=== PATIENT | female | born 1960 | race American Indian/Alaskan Native ===

== ENCOUNTER 2016-12-23 16:31 | Emergency (ER) | payer MEDICARE ==
[2016-12-23 16:44] VITALS: BP 135/88
[2016-12-23 17:24] LABS: Basophils % (Auto) 0.5 % (0.0-1.8); Eosinophils % (Auto) 1.3 % (0.0-4.3); Hematocrit 34.5 % (30.3-42.9); Hemoglobin 11.4 gm/dl (10.1-14.3); Mean Corpuscular HGB Conc 33 % (30-34); Mean Corpuscular Hemoglobin 29 pg (28-32); Mean Corpuscular Volume 88 fl (79-97); Platelet Count 276 K/mm3 (140-440); Red Blood Count 3.91 M/mm3 (3.65-5.03); Red Cell Distribution Width 13.5 % (13.2-15.2)
[2016-12-23 17:28] LABS: Urine Drugs of Abuse Note Disclamer
[2016-12-23 17:30] LABS: Anion Gap 18 mmol/L; BUN/Creatinine Ratio 17.14; Blood Urea Nitrogen 12 mg/dL (7-17); Calcium 9.6 mg/dL (8.4-10.2); Carbon Dioxide 29 mmol/L (22-30); Chloride 100.8 mmol/L (98-107); Glucose 112 mg/dL (65-100); Potassium 3.3 mmol/L (3.6-5.0); Sodium 144 mmol/L (137-145)
[2016-12-23 17:42] LABS: Bilirubin,Urine SM (Negative); Blood,Urine NEG (Negative); Ketones,Urine NEG (Negative); Leukocyte Esterase,Urine NEG (Negative); Mucus,Urine FEW /HPF; Nitrite,Urine NEG (Negative); Protein,Urine <15 mg/dL mg/dL (Negative)
--- NOTE | 2016-12-23 21:29 | Emergency Department Report ---
ED General Adult HPI - General Chief complaint: Psych Stated complaint: SLEEPY Time Seen by Provider: 12/23/16 21:23 Source: patient, RN notes reviewed Mode of arrival: Ambulatory Limitations: No Limitations - History of Present Illness Initial comments: This is a 56-year-old female who was previously unknown to this provider. She presents to the ER with a complaint of feeling sleepy. This is been going on for months. It does not have exacerbating or relieving factors. She is not homicidal or suicidal. She is not having hallucinations. She did not have access to guns or firearms. -: Gradual, month(s) Consistency: constant Improves with: none Worsens with: none Associated Symptoms: denies: chest pain, cough, diaphoresis, fever/chills, headaches, loss of appetite, malaise, nausea/vomiting, rash, shortness of breath , syncope, weakness - Related Data Home Medications Medication Instructions Recorded Confirmed Last Taken No Known Home Medications [No 12/23/16 12/23/16 Unknown Reported Home Medications] Allergies Allergy/AdvReac Type Severity Reaction Status Date / Time No Known Allergies Allergy Verified 12/23/16 16:37 ED Review of Systems ROS: Stated complaint: SLEEPY Other details as noted in HPI Constitutional: denies: fever Eyes: denies: eye discharge ENT: denies: epistaxis Respiratory: denies: cough Cardiovascular: denies: chest pain Gastrointestinal: denies: abdominal pain Genitourinary: denies: dysuria Musculoskeletal: denies: back pain Skin: denies: lesions Neurological: confusion Psychiatric: denies: homicidal thoughts, suicidal thoughts ED Past Medical Hx - Past Medical History Hx Hypertension: Yes Hx Diabetes: Yes Hx Arthritis: Yes Hx Asthma: Yes - Surgical History Past Surgical History?: Yes Additional Surgical History: gallbladder - Social History Smoking Status: Never Smoker Substance Use Type: None - Medications Home Medications: Home Medications Medication Instructions Recorded Confirmed Last Taken Type No Known Home Medications [No 12/23/16 12/23/16 Unknown History Reported Home Medications] ED Physical Exam - General Limitations: No Limitations General appearance: obese - Head Head exam: Present: atraumatic, normocephalic - Eye Eye exam: Present: normal appearance, PERRL, EOMI, other (visual acuity intact to finger counting, color perception, reading at a close distance). Absent: nystagmus - ENT ENT exam: Present: normal exam, normal orophraynx, mucous membranes moist, normal external ear exam - Neck Neck exam: Present: normal inspection, full ROM. Absent: tenderness, meningismus - Respiratory Respiratory exam: Present: normal lung sounds bilaterally. Absent: respiratory distress, wheezes, rales, rhonchi, stridor, chest wall tenderness, accessory muscle use, decreased breath sounds, prolonged expiratory - Cardiovascular Cardiovascular Exam: Present: regular rate, normal rhythm, normal heart sounds. Absent: bradycardia, tachycardia, irregular rhythm, systolic murmur, diastolic murmur, rubs, gallop - GI/Abdominal GI/Abdominal exam: Present: soft, normal bowel sounds. Absent: distended, tenderness, guarding, rebound, rigid, pulsatile mass - Extremities Exam Extremities exam: Present: normal inspection, full ROM. Absent: tenderness, calf tenderness - Back Exam Back exam: Present: normal inspection, full ROM. Absent: tenderness, CVA tenderness (R), paraspinal tenderness, vertebral tenderness - Neurological Exam Neurological exam: Present: alert, oriented X3, normal gait, other (Extraocular movements intact. Tongue midline. No facial droop. Facial sensation intact to light touch in the V1, V2, V3 distribution bilaterally. 5 and 5 strength in 4 extremities.. Sensation is intact to light touch in 4 extremities.). Absent : motor sensory deficit - Psychiatric Psychiatric exam: Present: normal affect, normal mood. Absent: homicidal ideation, suicidal ideation - Skin Skin exam: Present: warm, dry, intact, normal color. Absent: rash ED Course Vital Signs 12/23/16 16:37 Temperature 98.7 F Pulse Rate 68 Respiratory 16 Rate Blood Pressure 135/88 O2 Sat by Pulse 95 Oximetry ED Medical Decision Making - Lab Data Result diagrams: 12/23/16 16:57 12/23/16 16:57 Vital Signs 12/23/16 16:37 Temperature 98.7 F Pulse Rate 68 Respiratory 16 Rate Blood Pressure 135/88 O2 Sat by Pulse 95 Oximetry Lab Results 12/23/16 12/23/16 12/23/16 Range/Units 16:57 16:57 16:57 WBC 6.0 (4.5-11.0) K/mm3 RBC 3.91 (3.65-5.03) M/mm3 Hgb 11.4 (10.1-14.3) gm/dl Hct 34.5 (30.3-42.9) % MCV 88 (79-97) fl MCH 29 (28-32) pg MCHC 33 (30-34) % RDW 13.5 (13.2-15.2) % Plt Count 276 (140-440) K/mm3 Lymph % (Auto) 42.5 H (13.4-35.0) % [place] % (Auto) 11.2 H (0.0-7.3) % Eos % (Auto) 1.3 (0.0-4.3) % Baso % (Auto) 0.5 (0.0-1.8) % Lymph # 2.5 (1.2-5.4) K/mm3 [place] # 0.7 (0.0-0.8) K/mm3 Eos # 0.1 (0.0-0.4) K/mm3 Baso # 0.0 (0.0-0.1) K/mm3 Seg Neutrophils % 44.5 (40.0-70.0) % Seg Neutrophils # 2.7 (1.8-7.7) K/mm3 Sodium 144 (137-145) mmol/L Potassium 3.3 L (3.6-5.0) mmol/L Chloride 100.8 (98-107) mmol/L Carbon Dioxide 29 (22-30) mmol/L Anion Gap 18 mmol/L BUN 12 (7-17) mg/dL Creatinine 0.7 (0.7-1.2) mg/dL Estimated GFR > 60 ml/min BUN/Creatinine Ratio 17.14 % Glucose 112 H (65-100) mg/dL Calcium 9.6 (8.4-10.2) mg/dL Urine Color (Yellow) Urine Turbidity (Clear) Urine pH (5.0-7.0) Ur Specific [place] (1.003-1.030) Urine Protein (Negative) mg/dL Urine Glucose (UA) (Negative) mg/dL Urine Ketones (Negative) mg/dL Urine Blood (Negative) Urine Nitrite (Negative) Urine Bilirubin (Negative) Urine Ictotest (Negative) Urine Urobilinogen (<2.0) mg/dL Ur Leukocyte Esterase (Negative) Urine WBC (Auto) (0.0-6.0) /HPF Urine RBC (Auto) (0.0-6.0) /HPF U Epithel Cells (Auto) (0-13.0) /HPF Urine Mucus /HPF Urine Opiates Screen Urine Methadone Screen Ur Barbiturates Screen Ur Phencyclidine Scrn Ur Amphetamines Screen U Benzodiazepines Scrn Urine Cocaine Screen U Marijuana (THC) Screen Drugs of Abuse Note Plasma/Serum Alcohol < 0.01 (0-0.07) gm% 12/23/16 12/23/16 Range/Units Unknown Unknown WBC (4.5-11.0) K/mm3 RBC (3.65-5.03) M/mm3 Hgb (10.1-14.3) gm/dl Hct (30.3-42.9) % MCV (79-97) fl MCH (28-32) pg MCHC (30-34) % RDW (13.2-15.2) % Plt Count (140-440) K/mm3 Lymph % (Auto) (13.4-35.0) % [place] % (Auto) (0.0-7.3) % Eos % (Auto) (0.0-4.3) % Baso % (Auto) (0.0-1.8) % Lymph # (1.2-5.4) K/mm3 [place] # (0.0-0.8) K/mm3 Eos # (0.0-0.4) K/mm3 Baso # (0.0-0.1) K/mm3 Seg Neutrophils % (40.0-70.0) % Seg Neutrophils # (1.8-7.7) K/mm3 Sodium (137-145) mmol/L Potassium (3.6-5.0) mmol/L Chloride (98-107) mmol/L Carbon Dioxide (22-30) mmol/L Anion Gap mmol/L BUN (7-17) mg/dL Creatinine (0.7-1.2) mg/dL Estimated GFR ml/min BUN/Creatinine Ratio % Glucose (65-100) mg/dL Calcium (8.4-10.2) mg/dL Urine Color Yellow (Yellow) Urine Turbidity Clear (Clear) Urine pH 5.0 (5.0-7.0) Ur Specific [place] 1.024 (1.003-1.030) Urine Protein <15 mg/dl (Negative) mg/dL Urine Glucose (UA) Neg (Negative) mg/dL Urine Ketones Neg (Negative) mg/dL Urine Blood Neg (Negative) Urine Nitrite Neg (Negative) Urine Bilirubin Sm (Negative) Urine Ictotest Positive (Negative) Urine Urobilinogen 4.0 (<2.0) mg/dL Ur Leukocyte Esterase Neg (Negative) Urine WBC (Auto) 1.0 (0.0-6.0) /HPF Urine RBC (Auto) 1.0 (0.0-6.0) /HPF U Epithel Cells (Auto) 1.0 (0-13.0) /HPF Urine Mucus Few /HPF Urine Opiates Screen Presumptive negative Urine Methadone Screen Presumptive negative Ur Barbiturates Screen Presumptive negative Ur Phencyclidine Scrn Presumptive negative Ur Amphetamines Screen Presumptive negative U Benzodiazepines Scrn Presumptive negative Urine Cocaine Screen Presumptive negative U Marijuana (THC) Screen Presumptive negative Drugs of Abuse Note Disclamer Plasma/Serum Alcohol (0-0.07) gm% - Medical Decision Making Differential diagnosis: Obstructive sleep apnea, poor sleep hygiene, general medical evaluation Assessment and plan: A 56-year-old femalewith a complaint of feeling forgetful for months. She is afebrile, with reassuring vital signs, has a GCS of 15, with an NIH score of 0, she is clinically sober, does not require 1013, she is not a homicidal nor suicidal. There does not appear to be any emergent condition at this time, she does not require 1013, down to be incidentally hypokalemic, this is repleted. The patient is to follow-up with an outpatient primary care doctor. There does not appear to be an emergent condition at this time. Patient alert and oriented 3, immediate and short-term recall intact Critical care attestation.: If time is entered above; I have spent that time in minutes in the direct care of this critically ill patient, excluding procedure time. ED Disposition Clinical Impression: General medical exam Disposition: DC-01 TO HOME OR SELFCARE Is pt being admited?: No Does the pt Need Aspirin: No Condition: Good Instructions: Snoring (ED) Additional Instructions: Follow-up with the primary care doctor within the next month. Return to the ER right away with fevers, chills, lethargy, irritability, chest pain and abdominal pain, shortness of breath, homicidality, suicidality, inability to tolerate liquid feeds. Referrals: PRIMARY CARE, [Primary Care Provider] - 3-5 Days LORD,RAMILA L, MD [Staff Physician] - 3-5 Days LOGAN LORD MD [Referring] - 3-5 Days [facility] [Provider Group] - 3-5 Days
[2016-12-23] MEDS ORDERED: K-DUR PO ONE (21:54)
== END 2016-12-23 23:08 | disposition home or self-care (01) ==
LOC: ED 16:31
DX: G47.8 Other sleep disorders (principal); I10 Essential (primary) hypertension; E11.9 Type 2 diabetes mellitus without complications; M19.90 Unspecified osteoarthritis, unspecified site; J45.909 Unspecified asthma, uncomplicated
CPT/HCPCS: 36415; 80048; 80307; 81001; 85025; 99283; G0480; 80320

== ENCOUNTER 2019-09-28 23:43 | Emergency (ER) | payer MEDICAID, MEDICARE ==
[2019-09-28] MEDS ORDERED: ASPIRIN 325 MG TAB PO ONE (23:54)
[2019-09-29 00:47] LABS: Bacteria,Urine 1+ /HPF (Negative); Bilirubin,Urine NEG (Negative); Blood,Urine NEG (Negative); Color,Urine Yellow (Yellow); Mucus,Urine FEW /HPF
[2019-09-29 00:48] LABS: Basophils # (Auto) 0.1 K/mm3 (0.0-0.1); Basophils % (Auto) 1.1 % (0.0-1.8); Eosinophils # (Auto) 0.1 K/mm3 (0.0-0.4); Eosinophils % (Auto) 0.5 % (0.0-4.3); Lymphocytes # (Auto) 2.5 K/mm3 (1.2-5.4); Lymphocytes % (Auto) 23.1 % (13.4-35.0); Mean Corpuscular HGB Conc 37 % (30-34); Mean Corpuscular Volume 89 fl (79-97); Monocytes # (Auto) 0.8 K/mm3 (0.0-0.8); Monocytes % (Auto) 7.7 % (0.0-7.3); Platelet Count 360 K/mm3 (140-440); Red Blood Count 4.09 M/mm3 (3.65-5.03); Red Cell Distribution Width 13.5 % (13.2-15.2)
[2019-09-29 00:54] LABS: Hematocrit 36.5 % (30.3-42.9); Hemoglobin 13.4 gm/dl (10.1-14.3)
--- NOTE | 2019-09-29 01:29 | XRay Report ---
CHEST 1 VIEW INDICATION: Chest Pain. COMPARISON: None. FINDINGS: Support devices: None. Heart: Normal. Lungs/Pleura: No acute pulmonary or pleural findings. IMPRESSION: 1. No acute findings. At the time of this dictation, the image is under an EKG heading. The technologist will have this res olved in the morning. Signer Name: Froilan Velez MD Signed: 09/29/2019 1:25 AM Workstation Name: [id number]
[2019-09-29 01:42] LABS: Alanine Aminotransferase 12 units/L (7-56); Albumin 4.6 g/dL (3.9-5); BUN/Creatinine Ratio 13; Blood Urea Nitrogen 8 mg/dL (7-17); Calcium 10.8 mg/dL (8.4-10.2); Hemolysis Index 3
[2019-09-29] MEDS ORDERED: ONDANSETRON 4 MG/2 ML INJ IV ONE (02:15)
[2019-09-29] MEDS ORDERED: SODIUM CHLORIDE 0.9% 500 ML 500 ML IV ONE (02:16)
[2019-09-29] MEDS ORDERED: HYDROmorphone 1 MG/1 ML INJ IV ONE (02:16)
--- NOTE | 2019-09-29 02:16 | Emergency Department Report ---
ED General Adult HPI - General Chief complaint: Chest Pain Stated complaint: CHEST PAIN PUI?: No Time Seen by Provider: 09/29/19 02:06 Source: patient, EMS ( EMS documentation not available at time of chart dictation ), RN notes reviewed, old records reviewed Mode of arrival: Ambulatory Limitations: No Limitations - History of Present Illness Initial comments: This is a 59-year-old female who typically follows with [facility]. Her past medical history includes arthritis, obesity, distant history of cholecystectomy, diabetes, hypertension, fibromyalgia. The patient presents to the ER with a complaint of diffuse abdominal pain. Her abdominal pain is "all over." It got worse over the past 24 hours. She is scheduled to see a GI physician in the next month Triage documentation is reviewed and appreciated, however, this patient specifically denies chest pain, shortness of breath. She denies DVT and pulmonary embolism risk factors. There is no complaint of headache, neck pain, chest pain or acute upper back pain. No irritative or obstructive urinary symptoms. Abdominal pain is sharp, crampy and achy, increases with palpation, range of motion, position and decreases with rest. No extremity complaints are endorsed. -: Gradual, hour(s), days(s) Location: abdomen Radiation: non-radiation Quality: aching Consistency: constant Improves with: rest Worsens with: movement - Related Data Previous Rx's Medication Instructions Recorded Last Taken Type Acetaminophen [Non-Aspirin Extra 500 mg PO Q6HR PRN #30 tablet 09/29/19 Unknown Rx Strength] Famotidine [Pepcid] 20 mg PO BID #60 tablet 09/29/19 Unknown Rx Magnesium Oxide [Mag-Ox] 400 mg PO QDAY #14 tablet 09/29/19 Unknown Rx Metoclopramide [Reglan] 10 mg PO QID PRN #30 tablet 09/29/19 Unknown Rx Allergies Allergy/AdvReac Type Severity Reaction Status Date / Time No Known Allergies Allergy Verified 12/23/16 16:37 ED Review of Systems ROS: Stated complaint: CHEST PAIN Other details as noted in HPI Constitutional: denies: fever Eyes: denies: eye discharge ENT: denies: congestion Respiratory: denies: wheezing Cardiovascular: denies: chest pain, syncope Gastrointestinal: abdominal pain, nausea. denies: vomiting Genitourinary: denies: dysuria Skin: denies: as per HPI, lesions Neurological: denies: weakness Hematological/Lymphatic: denies: easy bleeding ED Past Medical Hx - Past Medical History Previous Medical History?: Yes Hx Hypertension: Yes Hx Diabetes: Yes Hx Arthritis: Yes Hx Asthma: Yes Additional medical history: fibroid mylagia - Surgical History Past Surgical History?: Yes Hx Cholecystectomy: Yes Additional Surgical History: gallbladder - Social History Smoking Status: Never Smoker Substance Use Type: None - Medications Home Medications: Home Medications Medication Instructions Recorded Confirmed Last Taken Type Acetaminophen [Non-Aspirin Extra 500 mg PO Q6HR PRN #30 tablet 09/29/19 Unknown Rx Strength] Famotidine [Pepcid] 20 mg PO BID #60 tablet 09/29/19 Unknown Rx Magnesium Oxide [Mag-Ox] 400 mg PO QDAY #14 tablet 09/29/19 Unknown Rx Metoclopramide [Reglan] 10 mg PO QID PRN #30 tablet 09/29/19 Unknown Rx ED Physical Exam - General Limitations: No Limitations General appearance: alert, anxious, obese - Head Head exam: Present: atraumatic, normocephalic - Eye Eye exam: Present: normal appearance, EOMI. Absent: nystagmus - ENT ENT exam: Present: normal exam, normal orophraynx, mucous membranes moist, normal external ear exam - Neck Neck exam: Present: normal inspection, full ROM. Absent: tenderness, meningismus - Respiratory Respiratory exam: Present: normal lung sounds bilaterally. Absent: respiratory distress, wheezes, rales, rhonchi, stridor - Cardiovascular Cardiovascular Exam: Present: regular rate, normal rhythm, normal heart sounds. Absent: bradycardia, tachycardia, irregular rhythm, systolic murmur, diastolic murmur, rubs, gallop - GI/Abdominal GI/Abdominal exam: Present: soft, tenderness. Absent: distended, guarding, rebound, rigid, pulsatile mass - Extremities Exam Extremities exam: Present: normal inspection, full ROM, pedal edema, other (2+ pulses noted in the bilateral upper and lower extremities. There is no palpable cord. negative Homans sign. Muscular compartments are soft. The pelvis is stable.). Absent: calf tenderness - Back Exam Back exam: Present: normal inspection. Absent: tenderness, CVA tenderness (R), CVA tenderness (L), paraspinal tenderness, vertebral tenderness - Neurological Exam Neurological exam: Present: alert, other (No facial droop. Tongue midline. Extraocular movements intact bilaterally. Facial sensation intact to light touch in V1, V2, V3 distribution bilaterally. 5 and a 5 strength in 4 extremities. Sensation intact to light touch in 4 extremities.). Absent: motor sensory deficit - Psychiatric Psychiatric exam: Present: anxious - Skin Skin exam: Present: warm, dry, intact, normal color. Absent: rash ED Course Vital Signs 09/28/19 09/28/19 09/29/19 23:48 23:54 02:26 Temperature 98.3 F Pulse Rate 72 77 Respiratory 18 22 Rate Blood Pressure 153/103 Blood Pressure [left fore arm] O2 Sat by Pulse 99 98 Oximetry 09/29/19 09/29/19 09/29/19 02:30 03:00 04:10 Temperature Pulse Rate 66 67 Respiratory 14 14 Rate Blood Pressure 181/96 181/96 Blood Pressure 181/96 [left fore arm] O2 Sat by Pulse 96 98 Oximetry 09/29/19 05:00 Temperature Pulse Rate 69 Respiratory 13 Rate Blood Pressure 181/96 Blood Pressure [left fore arm] O2 Sat by Pulse 97 Oximetry - Reevaluation(s) Reevaluation #1: 09/29/19 03:27 Differential diagnosis, including but not limited to: GERD, gastritis, hiatal hernia, pneumonia, pancreatitis, obstruction, colitis, diverticulitis, obesity, urinary tract infection Assessment and plan: 59-year-old female with a primary complaint of abdominal pain. She denies DVT and pulmonary embolism risk factors. She is not currently tachycardic, tachypneic or hypoxic. She is low risk by Wells criteria. She is adamant that she is not having chest pain to me. Her main complaint is abdominal pain. Check basic labs, EKG, urinalysis, CT scan of the abdomen pelvis, reassess. Elevated blood pressure reviewed and appreciated, likely secondary to pain. Reevaluation #2: 09/29/19 04:49 CT scan of the abdomen pelvis negative for acute disease. Troponin negative x2. EKG unchanged x2. Patient feels improved. Discussed findings with patient. She is suitable to follow-up with her outpatient primary care doctor and/or pin chaser ED Medical Decision Making - Lab Data Result diagrams: 09/29/19 00:03 09/29/19 00:03 Vital Signs 09/28/19 09/28/19 09/29/19 23:48 23:54 02:26 Temperature 98.3 F Pulse Rate 72 77 Respiratory 18 22 Rate Blood Pressure 153/103 Blood Pressure [left fore arm] O2 Sat by Pulse 99 98 Oximetry 09/29/19 02:30 Temperature Pulse Rate Respiratory Rate Blood Pressure Blood Pressure 181/96 [left fore arm] O2 Sat by Pulse Oximetry Lab Results 09/28/19 09/29/19 09/29/19 Range/Units Unknown 00:03 00:03 WBC 11.0 (4.5-11.0) K/mm3 RBC 4.09 (3.65-5.03) M/mm3 Hgb 13.4 (10.1-14.3) gm/dl Hct 36.5 (30.3-42.9) % MCV 89 (79-97) fl MCH 33 H (28-32) pg MCHC 37 H (30-34) % RDW 13.5 (13.2-15.2) % Plt Count 360 (140-440) K/mm3 Lymph % (Auto) 23.1 (13.4-35.0) % [place] % (Auto) 7.7 H (0.0-7.3) % Eos % (Auto) 0.5 (0.0-4.3) % Baso % (Auto) 1.1 (0.0-1.8) % Lymph # 2.5 (1.2-5.4) K/mm3 [place] # 0.8 (0.0-0.8) K/mm3 Eos # 0.1 (0.0-0.4) K/mm3 Baso # 0.1 (0.0-0.1) K/mm3 Seg Neutrophils % 67.6 (40.0-70.0) % Seg Neutrophils # 7.4 (1.8-7.7) K/mm3 Sodium (137-145) mmol/L Potassium (3.6-5.0) mmol/L Chloride (98-107) mmol/L Carbon Dioxide (22-30) mmol/L Anion Gap mmol/L BUN (7-17) mg/dL Creatinine (0.7-1.2) mg/dL Estimated GFR ml/min BUN/Creatinine Ratio % Glucose (65-100) mg/dL Calcium (8.4-10.2) mg/dL Total Bilirubin (0.1-1.2) mg/dL AST (5-40) units/L ALT (7-56) units/L Alkaline Phosphatase (35-129) units/L Troponin T 0.010 (0.00-0.029) ng/mL Total Protein (6.3-8.2) g/dL Albumin (3.9-5) g/dL Albumin/Globulin Ratio % Lipase (13-60) units/L Urine Color Yellow (Yellow) Urine Turbidity Clear (Clear) Urine pH 8.0 H (5.0-7.0) Ur Specific [place] 1.017 (1.003-1.030) Urine Protein 100 mg/dl (Negative) mg/dL Urine Glucose (UA) Neg (Negative) mg/dL Urine Ketones Neg (Negative) mg/dL Urine Blood Neg (Negative) Urine Nitrite Neg (Negative) Urine Bilirubin Neg (Negative) Urine Urobilinogen 4.0 (<2.0) mg/dL Ur Leukocyte Esterase Neg (Negative) Urine WBC (Auto) 1.0 (0.0-6.0) /HPF Urine RBC (Auto) 7.0 (0.0-6.0) /HPF U Epithel Cells (Auto) < 1.0 (0-13.0) /HPF Urine Bacteria (Auto) 1+ (Negative) /HPF Urine Mucus Few /HPF 09/29/19 09/29/19 Range/Units 00:03 00:44 WBC (4.5-11.0) K/mm3 RBC (3.65-5.03) M/mm3 Hgb (10.1-14.3) gm/dl Hct (30.3-42.9) % MCV (79-97) fl MCH (28-32) pg MCHC (30-34) % RDW (13.2-15.2) % Plt Count (140-440) K/mm3 Lymph % (Auto) (13.4-35.0) % [place] % (Auto) (0.0-7.3) % Eos % (Auto) (0.0-4.3) % Baso % (Auto) (0.0-1.8) % Lymph # (1.2-5.4) K/mm3 [place] # (0.0-0.8) K/mm3 Eos # (0.0-0.4) K/mm3 Baso # (0.0-0.1) K/mm3 Seg Neutrophils % (40.0-70.0) % Seg Neutrophils # (1.8-7.7) K/mm3 Sodium 134 L (137-145) mmol/L Potassium 4.4 (3.6-5.0) mmol/L Chloride 92.4 L (98-107) mmol/L Carbon Dioxide 25 (22-30) mmol/L Anion Gap 21 mmol/L BUN 8 (7-17) mg/dL Creatinine 0.6 L (0.7-1.2) mg/dL Estimated GFR > 60 ml/min BUN/Creatinine Ratio 13 % Glucose 124 H (65-100) mg/dL Calcium 10.8 H (8.4-10.2) mg/dL Total Bilirubin 0.20 (0.1-1.2) mg/dL AST 9 (5-40) units/L ALT 12 (7-56) units/L Alkaline Phosphatase 74 (35-129) units/L Troponin T (0.00-0.029) ng/mL Total Protein 8.5 H (6.3-8.2) g/dL Albumin 4.6 (3.9-5) g/dL Albumin/Globulin Ratio 1.2 % Lipase 22 (13-60) units/L Urine Color (Yellow) Urine Turbidity (Clear) Urine pH (5.0-7.0) Ur Specific [place] (1.003-1.030) Urine Protein (Negative) mg/dL Urine Glucose (UA) (Negative) mg/dL Urine Ketones (Negative) mg/dL Urine Blood (Negative) Urine Nitrite (Negative) Urine Bilirubin (Negative) Urine Urobilinogen (<2.0) mg/dL Ur Leukocyte Esterase (Negative) Urine WBC (Auto) (0.0-6.0) /HPF Urine RBC (Auto) (0.0-6.0) /HPF U Epithel Cells (Auto) (0-13.0) /HPF Urine Bacteria (Auto) (Negative) /HPF Urine Mucus /HPF - EKG Data -: EKG Interpreted by [place] EKG shows normal: sinus rhythm Rate: normal - EKG Data When compared to previous EKG there are: previous EKG unavailable 09/29/19 03:26 There is no prior EKG available for comparison. Sinus rhythm, 71 bpm, borderline leftward axis deviation, left anterior fascicular block, low voltage anteroseptal leads, poor R wave progression, not a STEMI. - Radiology Data Radiology results: report reviewed, image reviewed interpreted by me: X-ray of the chest is negative for acute disease. Print Report Referring Physician: GELY KING Patient Name: DEAN MONAE Date of : 1960 Sex: Female Report Date: 2019-09-29 Report Status: Finalized Findings [facility] [address] [place] [address] Cat Scan Report Signed Patient: DEAN MONAE MR#: [id number] : 1960 Acct:[id number] Age/Sex: 59 / F ADM Date: 09/28/19 Loc: ED Attending Dr: Ordering Physician: GELY KING MD Date of Service: 09/29/19 Procedure(s): CT abdomen pelvis w con Accession Number(s): [id number] cc: GELY KING MD CT ABDOMEN AND PELVIS WITH IV CONTRAST INDICATION: Acute abdominal pain. COMPARISON: None available. TECHNIQUE: All CT scans at this facility use dose modulation, automated exposure control, iterative reconstruction or weight based dosing, when appropriate, to reduce radiation dose to as low as reasonably achievable. FINDINGS: Lung Bases: No significant abnormality. Skeletal System: No acute abnormality. ABDOMEN: Liver: No significant abnormality. Gallbladder: Removed. Bile Ducts: Round low density at the gallbladder fossa (axial image 55) may be a cystic duct remnant which is mildly dilated. There is no common duct or intrahepatic bile duct dilatation. Pancreas: There is a punctate 3 mm cyst in the pancreas (axial image 61). The pancreas is otherwise unremarkable. Spleen: No significant abnormality. Adrenals: No significant abnormality. Right Kidney: No significant abnormality. Left Kidney: No significant abnormality. Upper GI tract: No significant abnormality. Lymph Nodes: No significant adenopathy. Aorta: No significant abnormality. Additional Findings: No significant abnormality. PELVIS: Colon: No acute abnormality. Diverticulosis is noted. Urinary Bladder and Distal Ureters: No significant abnormality. Appendix: No significant abnormality. Lymph Nodes: No significant adenopathy. Additional Findings: None. IMPRESSION: 1. No acute process in the abdomen or pelvis. 2. Probable dilated cystic duct remnant at the gallbladder fossa. No common duct or intrahepatic bile duct dilatation. 3. Additional, incidental findings as above. Signer Name: Froilan Velez MD Signed: 09/29/2019 4:22 AM Workstation Name: [id number] Transcribed By: LUCRECIA Dictated By: Froilan Velez MD Electronically Authenticated By: Froilan Velez MD Signed Date/Time: 09/29/19421 DD/ 7 Critical care attestation.: If time is entered above; I have spent that time in minutes in the direct care of this critically ill patient, excluding procedure time. ED Disposition Clinical Impression: Abdominal pain, Hypomagnesemia, Elevated blood pressure reading Disposition: -01 TO HOME OR SELFCARE Is pt being admited?: No Does the pt Need Aspirin: No Condition: Stable Additional Instructions: Do not take metformin medication for the next 2 days, if patient takes this medication. Avoid consumption of Motrin, ibuprofen, Naprosyn, Aleve. Take the prescribed medications as needed and directed. Follow-up with your primary care doctor or pin chaser within the next 5 days. Return to the emergency room right away with new pain, worsening pain, migration of pain, projectile vomiting, change in mental status, confusion, inability to tolerate liquid feeds, new, worsened or different symptoms not present on the initial emergency room evaluation. Please make note that patient was found to have elevated blood pressure while here in the emergency room. She should follow-up with a primary care doctor for this within the next month. Long-term complications of hypertension and elevated blood pressure include stroke, heart attack, disability, paralysis, loss of quality of life. Prescriptions: Magnesium Oxide [Mag-Ox] 400 mg PO QDAY #14 tablet Acetaminophen [Non-Aspirin Extra Strength] 500 mg PO Q6HR PRN #30 tablet PRN Reason: Pain , Severe (7-10) Famotidine [Pepcid] 20 mg PO BID #60 tablet Metoclopramide [Reglan] 10 mg PO QID PRN #30 tablet PRN Reason: Nausea Referrals: JAKOB CORTES MD [Primary Care Provider] - 3-5 Days [facility] [Provider Group] - 3-5 Days
[2019-09-29 02:31] VITALS: BP 181/96
[2019-09-29] MEDS ORDERED: MAGNESIUM SULFATE 2 GM/50 ML BAG IV ONE (03:31)
--- NOTE | 2019-09-29 04:27 | Cat Scan Report ---
CT ABDOMEN AND PELVIS WITH IV CONTRAST INDICATION: Acute abdominal pain. COMPARISON: None available. TECHNIQUE: All CT scans at this facility use dose modulation, automated exposure control, iterative reconstructi on or weight based dosing, when appropriate, to reduce radiation dose to as low as reasonably achieva ble. FINDINGS: Lung Bases: No significant abnormality. Skeletal System: No acute abnormality. ABDOMEN: Liver: No significant abnormality. Gallbladder: Removed. Bile Ducts: Round low density at the gallbladder fossa (axial image 55) may be a cystic duct remnant which is mildly dilated. There is no common duct or intrahepatic bile duct dilatation. Pancreas: There is a punctate 3 mm cyst in the pancreas (axial image 61). The pancreas is otherwise u nremarkable. Spleen: No significant abnormality. Adrenals: No significant abnormality. Right Kidney: No significant abnormality. Left Kidney: No significant abnormality. Upper GI tract: No significant abnormality. Lymph Nodes: No significant adenopathy. Aorta: No significant abnormality. Additional Findings: No significant abnormality. PELVIS: Colon: No acute abnormality. Diverticulosis is noted. Urinary Bladder and Distal Ureters: No significant abnormality. Appendix: No significant abnormality. Lymph Nodes: No significant adenopathy. Additional Findings: None. IMPRESSION: 1. No acute process in the abdomen or pelvis. 2. Probable dilated cystic duct remnant at the gallbladder fossa. No common duct or intrahepatic madelaine e duct dilatation. 3. Additional, incidental findings as above. Signer Name: Froilan Velez MD Signed: 09/29/2019 4:22 AM Workstation Name: [id number]
[2019-09-29] MEDS ORDERED: KETOROLAC 30 MG/1 ML INJ IV ONE (04:59)
== END 2019-09-29 05:26 | disposition home or self-care (01) ==
LOC: ED 23:43
DX: R10.84 Generalized abdominal pain (principal); E83.42 Hypomagnesemia; I10 Essential (primary) hypertension; E11.9 Type 2 diabetes mellitus without complications; M19.90 Unspecified osteoarthritis, unspecified site; J45.909 Unspecified asthma, uncomplicated
CPT/HCPCS: 36415; 71045; 74177; 80053; 81001; 82550; 83690; 83735; 84484; 85025; 93005; 96365; 96375; 99285; J1170; J1885; J2405; J3475; J7040; Q9967